=== PATIENT | female | born 1990 | race Two or more races ===

== ENCOUNTER 2025-02-05 19:24 | Emergency (ER) | payer MEDICAID, SELFPAY ==
[2025-02-05 19:32] VITALS: BMI 26.2
[2025-02-05 19:37] VITALS: BP 108/68; PULSE 60; RESP 16; TEMP 37; O2SAT 99
--- NOTE | 2025-02-05 19:44 | PD.EDWEAK ---
ED Weakness RME/HPI General Chief complaint: Nausea/Vomiting/Diarrhea Stated complaint: NAUSEA AND VOMITING Time Seen by Provider: 02/05/25 19:35 Arrival date/time: 02/05/25 19:24 Mode of arrival: wheelchair Limitations: physical limitation RME / HPI RME / HPI Narrative: DR. CANO?S MAIN ED EVALUATION: 34-year-old female presenting to the emergency department via wheelchair who is presenting for chief complaint of generalized weakness, difficulty walking, diarrhea, and nausea x 30 minutes. Patient felt weak prior to the 1 episode of diarrhea. Patient was wearing a long-sleeve and removed it due to feeling hot and sweating. She has eaten chips just prior to 1900 hours and had pancakes and eggs this morning. Denies any medication or medical history. Patient denies . No associated symptoms include chest pain. Patient denies any other associated symptoms or medical complaints. - PMH:?Denies - PSH: Denies - Social history: Denies - Current medications: Reviewed PCP is Unknown MD Complaint: generalized weakness and difficulty walking Onset (ago): minute(s) (30 ) Associated symptoms: nausea/vomiting and other (diarrhea) Related Data Allergies Allergy/AdvReac Type Severity Reaction Status Date / Time No Known Allergies Allergy Verified 02/05/25 20:09 Review of Systems Review of Systems Systems Reviewed: All systems reviewed, normal except as documented Constitutional Constitutional: Reports weakness Cardiovascular Cardiovascular: Denies chest pain Gastrointestinal Gastrointestinal: Reports diarrhea and Reports nausea Musculoskeletal Musculoskeletal: Reports abnormal gait Neurologic Neurologic: Reports abnormal gait and Reports weakness Past Medical History Past Medical History CARDIAC: Negative Congestive Heart Failure RESPIRATORY: Negative Chronic Obstructive Pulmonary Disease (COPD) GENITOURINARY: Negative Renal Disease ENDOCRINE: Negative Diabetes Mellitus Type 1 or Diabetes Mellitus Type 2 Social History SMOKING STATUS: Never smoker ED Exam General Limitations: Present physical limitation Head Head exam: Present atraumatic, normocephalic and normal inspection Eye Eye exam: Present normal appearance, PERRL and EOMI; Absent nystagmus ENT ENT exam: Present normal exam and normal oropharynx Neck Neck exam: Present normal inspection, full ROM and trachea midline; Absent tenderness Chest Chest inspection: Present normal inspection and symmetric chest wall rise; Absent tenderness or rash Respiratory Respiratory exam: Present normal lung sounds bilaterally; Absent respiratory distress, wheezes or stridor Cardiovascular Cardiovascular exam: Present regular rate, normal rhythm and normal heart sounds Abdominal Exam Abdominal exam: Present soft and normal bowel sounds; Absent distention, tenderness, guarding or rebound Extremities Exam Extremities exam: Present normal inspection, full ROM and normal capillary refill; Absent tenderness Back Exam Back exam: Present normal inspection and full ROM; Absent tenderness or paraspinal tenderness Neurological Exam Neurological exam: Present alert, oriented X3 and CN II-XII intact Psychiatric Psychiatric exam: Present normal affect and normal mood; Absent depressed, agitated or anxious Skin Skin exam: Present other (pale) Course Course Course Narrative: 1956: Patient received IV fluids. Quality Measures none Orders Category Date Time Status EKG (ED ONLY) *Do not use* NOW Care 02/05/25 22:08 Completed EKG (ED Only) Stat Exams 02/05/25 22:08 Ordered CBC Stat Lab 02/05/25 19:59 Completed CMP [Comprehensive Metabolic Panel] Stat Lab 02/05/25 19:59 Completed Urinalysis Stat Lab 02/05/25 19:59 Completed Sodium Chloride 0.9% 1000 ml [Ns] 1,000 ml Med 02/05/25 19:57 Discontinued IV 999 mls/hr Reevaluation(s) Reevaluation #1: Patient still appears pale. Time: 19:42 Vital Signs Vital signs: Vital Signs Temperature 98.6 F 02/05/25 19:37 Pulse Rate 60 02/05/25 19:37 Respiratory Rate 16 02/05/25 19:37 Blood Pressure 108/68 02/05/25 19:37 Pulse Oximetry (%) 99 02/05/25 19:37 Oxygen Delivery Method Room Air 02/05/25 19:37 Weakness MDM Narrative MDM Narrative:: Scribe Attestation: 02/05/2025 Tana Breaux am scribing for and in the presence of Dr. Cano. Provider Notation: Although this document has been carefully reviewed, there may still be some phonetic and other typographical errors.? These errors are purely grammatical due to imperfections in the software program and should not be construed in any way to compromise the substance of the patient's medical care during this visit. 34-year-old female presenting to the emergency department via wheelchair who is presenting for chief complaint of generalized weakness, diarrhea, and nausea x 30 minutes. Patient had episode right after her diarrhea episode. In the emergency department the patient likely had a vasovagal syncope. EKG is obtained and there is no abnormalities. ROS: Admits weakness, nausea, diarrhea, difficulty walking x 30 minutes. Denies chest pain. Differential diagnoses include Syncope, Electrolyte Abnormality, Dehydration, Hypoglycemia. Patient data External records reviewed:: [facility] previous records (No prior ED records available for review.) Clinical information provided by:: patient Social determinants that could affect healthcare access:: none Patient has the following chronic illnesses:: None reported How is presenting disease/condition affected by chronic disease/condition?: no chronic disease Evaluation data The following diagnostics were reviewed and interpreted by me:: lab results and EKG tracing(s) (EKG manual reading, February 05, 2025 22:21 hours, my interpretation: sinus rhythm 67 BPM, QTc is 389, low voltage, DE 130, 20 - 21, no STEMI) Lab and/or radiology exams considered but not ordered:: None Interpretation Summary: Labs RBC 5.27, MVC 78, Immature Gran # 0.02. Urine Clarity Turbid, Urine Protein 1+, Urine RBC 77, Urine WBC 335, Urine Squamous Epithelial Cells 112. Medications / Prescriptions Medications or Prescriptions considered but not ordered:: None Medication administrations:: Medication Administration History Discontinued Medications Sodium Chloride (Ns) 1,000 mls @ 999 mls/hr IV .Q1H1M ONE Stop: 02/05/25 20:57 Last Infusion: 02/05/25 21:03 Dose: Infused Documented By: Admin: 02/05/25 20:09 Dose: 999 mls/hr Documented By: DT See above if any Consultations Consultation(s) initiated? (list below): No Diagnosis Weakness Differential Diagnosis: hypoglycemia (Syncope, Electrolyte Abnormality) and dehydration Most likely diagnosis given after review of the tests above:: Vasovagal syncope Admission Indicated Admission indicated?: not indicated Explain why admission is indicated or not indicated:: Does not meet admission criteria Admission Request Was there a request for admission?: No Disposition Plan Disposition Plan: Discharge Discharge Attestation Discharge Attestation: The patient and all family members were given an opportunity to ask questions and understood the discharge instructions. Discharge instructions specifically effects, indications for sooner follow up or return to the emergency department, and the expected course of current diagnosis. Patient condition: Stable Discharge Plan Plan Patient Disposition: HOME (Self Care) Patient condition on transfer: Stable Prescriptions/Referrals Referrals: No Primary/Family,Physician [Primary Care Provider] - In 1 week Problem List Clinical Impression: Vasovagal syncope Patient/Caregiver Discharge Instructions Education Materials: Causes of Syncope, ED Fainting, Uncertain Cause Additional Instructions: DISCHARGE INSTRUCTIONS - ADULTS ? Even though you have been discharged from the Emergency Department, there are several things that you should do to ensure that you receive proper care: ? 1. DO READ your discharge instructions as these contain important information concerning your medical care. ? 2. If medication has been prescribed for your condition, fill the prescription as soon as possible and follow the directions on the medication. ? 3. RETURN AT ONCE TO THE EMERGENCY DEPARTMENT if you have any problems or concerns. These include but are not limited to fever, worsening pain(belly, chest, head, etc?), worsening shortness of breath, uncontrollable bleeding, inability to tolerate food and water, or any condition that makes you question your well-being. Also, if your symptoms do not improve in the next 12-24 hours, return to the ER or seek medical care immediately.? ? 4. Be sure to follow up with your regular physician or specialist as instructed at discharge as this is the best way to ensure that you receive the very best of care. If you do not have a primary care physician, please contact a physician group and make an appointment. ? 5. Please visit [email or web address] for coupons regarding your prescriptions. It is a free service for you to use and can help reduce the cost of your medication. ? We would like to thank you for coming today and our hope is that we served you and your family well during your stay. Print Language: [place]al[place] Stand Alone Forms: [employer] Award Info., Patient Portal Info Letter
[2025-02-05] MEDS: SODIUM CHLORIDE 0.9% 1000 ML 1,000 ML 999 ML IV (20:09)
[2025-02-05 20:28] LABS: Collection Type, Urine Voided
[2025-02-05 20:30] LABS: Basophils # (Auto) 0.1 Thou/mm3 (0.0-0.2); Basophils % (Auto) 1 % (0-2.5); Eosinophils # (Auto) 0.3 Thou/mm3 (0.0-0.5); Eosinophils % (Auto) 3 % (0-10); Hematocrit 41.2 % (36.0-46.0); Hemoglobin 14.6 g/dL (12.0-16.0); Immature Granulocytes % (Auto) 0 % (0-0); Immature Granulocytes Auto 0.02 Thou/mm3 (0.00-0.00); Lymphocytes # (Auto) 4.1 Thou/mm3 (1.0-4.8); Lymphocytes % (Auto) 46 % (10-50); Mean Corpuscular HGB Conc 35.4 g/dl (31.0-37.0); Mean Corpuscular Hemoglobin 27.7 pg (25.0-35.0); Mean Corpuscular Volume 78 fL (80-100); Monocytes # (Auto) 0.6 Thou/mm3 (0.0-0.8); Monocytes % (Auto) 6 % (0-12); Neutrophils % (Auto) 44 % (37-80); Nucleated Red Blood Cell % 0 /100 WBC (0); Platelet Count 299 Thou/mm3 (140-440); RDW Standard Deviation 37.9 fL (36.4-46.3); Red Blood Count 5.27 Miln/mm3 (4.00-5.20)
[2025-02-05 20:47] LABS: Bacteria,Urine Rare; Bilirubin,Urine Negative (Negative); Blood,Urine Negative (Negative); Color,Urine Yellow (Lt Yel-Yel); Glucose, Urine Negative (Negative); Hyaline Casts,Urine < 1 /hpf (0-1); Ketones,Urine Negative (Negative); Leukocyte Esterase,Urine Positive (Negative); Nitrite,Urine Negative (Negative); PH,Urine 6.5 (5.0-7.0); Protein,Urine 1+ (Neg - Trace); RBC,Urine 77 /hpf (0-3); Specific Gravity,Urine 1.031 (1.001-1.035); Squamous Epithelial Cell,Urine 112 /hpf (0-5); WBC,Urine 335 /hpf (0-5)
[2025-02-05 20:51] VITALS: BP 109/69; PULSE 70; RESP 16; TEMP 37.1; O2SAT 98
[2025-02-05 20:54] LABS: Alanine Aminotransferase 16 U/L (10-49); Albumin, Serum 4.4 gm/dL (3.5-5.0); Albumin/Globulin Ratio 1.6 (1.2-2.2); Alkaline Phosphatase 70 U/L (46-116); Anion Gap 11 (7-16); Aspartate Amino Transferase 19 U/L (0-34); BUN/Creatinine Ratio 13 Ratio (12-20); Bilirubin,Total 0.4 mg/dL (0.3-1.2); Blood Urea Nitrogen 15 mg/dL (9-23); Calcium 8.7 mg/dL (8.3-10.6); Calcium (Corrected) 8.7 mg/dL (8.5-10.1); Carbon Dioxide 24.8 mMol/L (20.0-31.0); Chloride 105 mMol/L (98-107); Creatinine (Component) 1.2 mg/dL (0.6-1.3); Estimated Creatinine Clearance 61.4 mL/min (>60); Globulin 2.8 gm/dL (2.3-3.5); Glucose 100 mg/dL (74-106); Osmolality,Calculated 282 (275-295); Potassium 3.4 mMol/L (3.4-5.1); Sodium 141 mMol/L (136-145); Total Protein 7.2 gm/dL (5.7-8.2); eGFR > 60 See Note
[2025-02-05 21:14] LABS: Clarity,Urine Turbid (Clear/Hazy)
[2025-02-05 22:29] VITALS: BP 125/85; PULSE 61; RESP 16; TEMP 37; O2SAT 99
== END 2025-02-05 22:30 | disposition home or self-care (01) ==
PROVIDERS: Emergency Provider Emergency Medicine
DX: R55 Syncope and collapse (principal)
CPT/HCPCS: 36415; 80053; 81001; 85025; 93005; 96360; 99284; J7030